=== PATIENT | male | born 1975 | race Native Hawaiian/Other Pacific Islander ===

== ENCOUNTER 2021-01-09 15:38 | Observation (INO) | payer OTHER ==
[~2021-01-09] VITALS: Ht 182.9 cm; Wt 75.7 kg
[2021-01-09 15:48] VITALS: BP 124/70; TEMP 98
[2021-01-09 16:04] VITALS: BP 108/70
[2021-01-09 16:51] LABS: PLATELET COUNT 266 K/uL (142-355)
[2021-01-09 16:59] LABS: POTASSIUM 3.5 mmol/L (3.6-5.2); SODIUM 138 mmol/L (136-145)
[2021-01-09 17:20] LABS: PARTIAL THROMBOPLASTIN TIME 23.3 SECONDS (24.5-33.6)
[2021-01-09 17:25] VITALS: BP 110/76
--- NOTE | 2021-01-09 23:04 | NUR ---
RECEIVED PT FROM ER VIA WHEELCHAIR. PT WAS ASSISTED TO BED PCU2. PT ADMITTED OBSERVATION. 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 PT IS LETHARGIC. PT DOES RESPOND TO QUESTIONS WHEN ASKED. PT WAS ASSESSED. CONNECTED TO CM/NIBP/PO/AND O2 SAT.
[2021-01-09 23:34] VITALS: BP 99/50; TEMP 98; Ht 182.9 cm; Wt 75.7 kg
[2021-01-09 23:45] VITALS: BP 100/60; TEMP 97
[2021-01-10] VITALS (22 sets, daily range): BP systolic 90–127; BP diastolic 48–80; TEMP 98–98.9
--- NOTE | 2021-01-10 00:01 | NUR ---
PT COMTINUES TO REST WITH EYES CLOSED. VITAL SIGNS ARE STABLE AT 99/54 BP HR IS 81 O2 SAT IS 100 PERCENT.
--- NOTE | 2021-01-10 01:35 | NUR ---
PT CONTINUES TO REST WITH EYES CLOSED. VITAL SIGNS ARE WNL. HR IS NSR.
--- NOTE | 2021-01-10 01:50 | NUR ---
PT RECEIVED BANANA BAG IN TH ER. IT WAS ORDERED ONE TIME ONLY.
[2021-01-10 07:42] LABS: PLATELET COUNT 289 K/uL (142-355)
--- NOTE | 2021-01-10 08:00 | NUR ---
SHIFT REPORT GIVEN PER TAB SHAH RN. PATIENT IS RESTING WITH EYES CLOSED. VSS. NO ACUTE DISTRESS NOTED. PATIENT IS ON RA WITH SPO2 AT 100%. BED LOCKED IN LOW POSITION, SIDE RAILS UP X2, CALL MELGAR WITHIN REACH.
[2021-01-10 08:03] LABS: POTASSIUM 3.6 mmol/L (3.6-5.2)
--- NOTE | 2021-01-10 09:22 | NUR ---
BANANA BAG SPIKED AT THIS TIME INFUSING AT 200 ML/HR TO A 20G TO THE LEFT FOREARM W/O DIFFICULTY- NO SIGNS OF INFILTRATION WERE NOTED. SHIFT ASSESSMENT COMPLETED. NO ACUTE DISTRESS IS NOTED. HR-73 NSR. B/P 106/55, SPO2 100% ON RA, RR-12. PATIENT IS AOX3. PATIENT REQUESTED SOMETHING TO DRINK AND SOME ICE CREAM. PATIENT OBSERVED AND ABLE TO SWALLOW AND EAT HIS ICE CREAM. BED LOCKED IN LOW POSITION, SIDE RAILS UP X2 CALL MELGAR WITHIN REACH.
--- NOTE | 2021-01-10 12:24 | NUR ---
PATIENT BROUGHT A REGULAR DIET TRAY AND HE 75% OF HIS MEAL W/O ASSISTANCE. PATIENT IS NOW IN LOW FOWLERS SLEEPING ON HIS LEFT SIDE. NO ACUTE DISTRESS NOTED AT THIS TIME.
--- NOTE | 2021-01-10 13:19 | NUR ---
PATIENT IS RESTING QUIETLY WITH EYES CLOSED. PATIENT REPOSITIONS HIMSELF IN THE BED W/O ASSISTANCE. PATIENT IS STILL DROWSY WHEN ASKING HIM QUESTIONS BUT DOES RESPOND AND THEN GOES BACK TO SLEEP. CURRENT VS ARE STABLE WITH 02 AT 98 RA, HR-87, RR-16, B/P 112/56. BED IS LOCKED IN LOW POSITION, SIDE RAILS UP X2.
--- NOTE | 2021-01-10 13:30 | NUR ---
ROUNDING ON PATIENT. NEW ORDERS GIVEN AT THIS TIME TO FINISH CURRENT BANANA INFUSION AND THEN DISCONTINUE. START NS AFTER AT 100 ML/HR. THIAMINE 100 MG PO DAILY & FOLIC ACID 1 MG PO DAILY ORDER ENTERED IN COMPUTER.
--- NOTE | 2021-01-10 17:20 | NUR ---
HERE ROUNDING ON PATIENT.
--- NOTE | 2021-01-10 19:36 | NUR ---
IV INFITRATED TO RIGHT ARM. REMOVED 20 GAUGE FROM LEFT FOREARM. WARM COMPRESS APPLIED TO THIS AREA. PT WITH NO COMPLAINTS. ALERT AND ORIENTED. BED IN LOW POSITION. VS 115/81, HR 84 NSR, AND O2 SAT 97 PERCENT.
--- NOTE | 2021-01-10 20:45 | NUR ---
PT CONTINUES TO REST. NO SEIZURE ACTIVITY NOTED. PT WITH NO COMPLAINTS. LEFT ARM IS DECREASING IN EDEMA. THIS UPPER EXTREMITY WAS ELEVATED. PT ABLE TO MOVE ALL DIGITS AND DENIES PAIN. SR ON CM. VITAL SIGNS WNL.
--- NOTE | 2021-01-10 23:06 | NUR ---
IV RESTARTED TO PT'S RIGHT FOREARM WITH A 22G. SUCCESSFUL X1 STICK. PT TOLERATED WITH NO COMPLAINTS.
[2021-01-11] VITALS (10 sets, daily range): BP systolic 102–123; BP diastolic 48–77; TEMP 98–98.9
--- NOTE | 2021-01-11 01:17 | NUR ---
PT CONTINUES TO REST. NO S/SX OF WITHDRAWAL.
--- NOTE | 2021-01-11 04:49 | NUR ---
PT CONTINUES TO REST QUIETLY. NO SEIZURE ACTIVITY NOTED. NO CHANGES IN NEUROS. AROUSES EASILY WHEN SPOKEN TO. CM WITH SR. NS INFUSING AT 100 ML/HR VIA INFUSION PUMP. BED IN LOW POSITION. CALL LIGHT IN REACH.
--- NOTE | 2021-01-11 08:15 | NUR ---
PT GIVEN BREAKFAST TRAY AT THIS TIME. PT ATE 100% NO CO AT THIS TIME. PT NOTED TO BE SWEATY. NO PROBLEMS NOTED AT THIS TIME.
--- NOTE | 2021-01-11 08:30 | NUR ---
DR THORNTON HERE AT THIS TIME AT BS TALKING TO PT. VERBAL ORDERS REC'D THAT PT WOULD BE DISCHARGED AROUND LUNCH. PT VERBALIZED UNDERSTANDING.
--- NOTE | 2021-01-11 09:02 | NUR ---
CALLED DR THORNTON AND ASKED DID HE WANT ROUTINE AM LABS PRIOR TO DISCHARGE AND HE SAID WE DID NOT NEED LABS AT THIS TIME.
--- NOTE | 2021-01-11 10:45 | NUR ---
PT USED CORDLESS PHONE TO CALL FOR RIDE HOME WITH FAMILY, PT SPOKE TO FAMILY MEMEBER WHO WILL COME AND GET HIM.
--- NOTE | 2021-01-11 10:54 | NUR ---
PT WALKED TO HERE IN ICU. PT'S GAIT WAS STEADY. NO PROBLEMS NOTED.
--- NOTE | 2021-01-11 11:00 | NUR ---
DISCHARGE INSTRUCTIONS EXPLAINED TO PT AND PT VERBALZIED UNDERSTANDING. PT REQUESTED TO BE ASSISTED OUT TO FRONT WHERE HE COULD WAIT ON FAMILY MEMEBER, PT ALERT AND OREINTED X 4 NO PROBLEMS OR CO AT TTIME OF DISCHARGE. PT ASSISTED OUT OF HOSP IN WC
--- NOTE | 2021-01-11 11:15 | NUR ---
PT LEFT HOSP VIA WC. PT ASSISTED OUT TO THE FRONT WHERE HE SAID HIS FAMILY MEMBER WAS COMING TO PICK HIM UP
== END 2021-01-11 11:15 | disposition home or self-care (01) ==
LOC: ED 15:38 → PCU 20:45
PROVIDERS: Hospitalist; ADMIT Internal Medicine Endocrinology, Diabetes & Metabolism; ATTEND Internal Medicine Endocrinology, Diabetes & Metabolism
DX: T43.621A Poisoning by amphetamines, accidental (unintentional), initial encounter (principal); G92 Toxic encephalopathy; Y92.89 Other specified places as the place of occurrence of the external cause; F11.10 Opioid abuse, uncomplicated; F15.10 Other stimulant abuse, uncomplicated; Z72.0 Tobacco use; E87.6 Hypokalemia; D72.828 Other elevated white blood cell count
CPT/HCPCS: 36415; 80053; 80307; 80320; 80329; 81000; 82550; 82948; 83880; 84484; 85027; 85610; 85730; 87635; 93005; 96365; 96375; 99220; 99285; G0378; J1650; J2060; J2310; J2405; J3411; J3475; J3490; U0003

== ENCOUNTER 2021-04-25 01:10 | Emergency (ER) | payer OTHER ==
[2021-05-03 10:26] LABS: POTASSIUM 4.1 mmol/L (3.6-5.2)
[2021-05-03 10:28] LABS: PLATELET COUNT 184 K/uL (142-355)
[2021-05-03 10:29] LABS: PARTIAL THROMBOPLASTIN TIME 22.1 SECONDS (24.5-33.6)
== END 2021-04-25 02:21 | disposition short-term general hospital (02) ==
LOC: ED 01:10
PROVIDERS: Family Medicine
PROC: 0HQ0XZZ Repair Scalp Skin, External Approach (ICD-10-PCS; principal; 2021-04-25)
PROC: 0HQ1XZZ Repair Face Skin, External Approach (ICD-10-PCS; 2021-04-25)
PROC: 0T9B70Z Drainage of Bladder with Drainage Device, Via Natural or Artificial Opening (ICD-10-PCS; 2021-04-25)
DX: S02.0XXA Fracture of vault of skull, initial encounter for closed fracture (principal); S06.1X0A Traumatic cerebral edema without loss of consciousness, initial encounter; S01.81XA Laceration without foreign body of other part of head, initial encounter; Y00.XXXA Assault by blunt object, initial encounter; Y92.410 Unspecified street and highway as the place of occurrence of the external cause
CPT/HCPCS: 36415; 51702; 80053; 80307; 80320; 81000; 82150; 83690; 85027; 85610; 85730; 96360; 96361; 96365; 96375; 99285; J0696; J2060; J2270

== ENCOUNTER 2023-01-22 20:21 | Emergency (ER) | payer OTHER ==
[~2023-01-22] VITALS: Ht 185.4 cm; Wt 114.3 kg
[2023-01-22 21:26] LABS: PLATELET COUNT 437 K/uL (142-355)
[2023-01-22 21:34] LABS: POTASSIUM 3.7 mmol/L (3.6-5.2)
[2023-01-24 07:00] VITALS: BP 122/82; TEMP 98
== END 2023-01-24 12:21 | disposition still patient (30) ==
LOC: ED 20:21
PROVIDERS: Family Medicine
DX: R45.851 Suicidal ideations (principal); Z11.52 Encounter for screening for COVID-19
CPT/HCPCS: 36415; 80053; 80307; 81000; 85027; 87635; 99285; U0003